=== PATIENT | male | born 1935 | race Caucasian/White ===

== ENCOUNTER 2020-01-24 18:30 | Inpatient (IN) | payer MEDICARE, OTHER ==
[2020-01-25] MEDS ORDERED: FUROSEMIDE 40MG/4ML VIAL (J1940) ONE (01:01)
[2020-01-25] MEDS ORDERED: LEVOTHYROXINE 100MCG TABLET (0.1MG) As Ordered ONE (06:53)
[2020-01-25] MEDS ORDERED: LEVOTHYROXINE 100MCG TABLET (0.1MG) ONE (06:53)
[2020-01-25] MEDS ORDERED: LOSARTAN 50MG TABLET As Ordered ONE (10:04)
[2020-01-25] MEDS ORDERED: ASPIRIN 81 MG ENTERIC TAB ONE (10:04)
[2020-01-25] MEDS ORDERED: TAMSULOSIN 0.4 MG CAP As Ordered ONE (10:04)
[2020-01-25] MEDS ORDERED: CLOPIDOGREL 75 MG TAB ONE (10:04)
[2020-01-25] MEDS ORDERED: CLOPIDOGREL 75 MG TAB As Ordered ONE (10:04)
[2020-01-25] MEDS ORDERED: amLODIPine 10 MG TAB ONE (10:04)
[2020-01-25] MEDS ORDERED: TAMSULOSIN 0.4 MG CAP ONE (10:04)
[2020-01-25] MEDS ORDERED: LOSARTAN 50MG TABLET ONE (10:04)
[2020-01-25] MEDS ORDERED: amLODIPine 10 MG TAB As Ordered ONE (10:05)
[2020-01-25] MEDS ORDERED: ASPIRIN 81 MG ENTERIC TAB As Ordered ONE (10:05)
[2020-01-26] MEDS ORDERED: LEVOTHYROXINE 100MCG TABLET (0.1MG) As Ordered ONE (07:41)
[2020-01-26] MEDS ORDERED: LEVOTHYROXINE 100MCG TABLET (0.1MG) ONE (07:41)
[2020-01-26] MEDS ORDERED: TAMSULOSIN 0.4 MG CAP ONE (08:34)
[2020-01-26] MEDS ORDERED: LOSARTAN 50MG TABLET As Ordered ONE (08:34)
[2020-01-26] MEDS ORDERED: LOSARTAN 50MG TABLET ONE (08:34)
[2020-01-26] MEDS ORDERED: CLOPIDOGREL 75 MG TAB As Ordered ONE (08:34)
[2020-01-26] MEDS ORDERED: ASPIRIN 81 MG ENTERIC TAB ONE (08:34)
[2020-01-26] MEDS ORDERED: amLODIPine 10 MG TAB ONE (08:34)
[2020-01-26] MEDS ORDERED: CLOPIDOGREL 75 MG TAB ONE (08:34)
[2020-01-26] MEDS ORDERED: TAMSULOSIN 0.4 MG CAP As Ordered ONE (08:35)
[2020-01-26] MEDS ORDERED: amLODIPine 10 MG TAB As Ordered ONE (08:35)
[2020-01-26] MEDS ORDERED: ASPIRIN 81 MG ENTERIC TAB As Ordered ONE (08:35)
[2020-01-26] MEDS ORDERED: POTASSIUM CHLORIDE 10 MEQ SR TABLET As Ordered ONE (13:29)
[2020-01-26] MEDS ORDERED: POTASSIUM CHLORIDE 10 MEQ SR TABLET ONE (13:29)
[2020-01-26] MEDS ORDERED: ONDANSETRON 4MG/2ML VIAL ONE (14:21)
[2020-01-26] MEDS ORDERED: ONDANSETRON 4MG/2ML VIAL As Ordered ONE (14:21)
[2020-01-26] MEDS ORDERED: SIMVASTATIN 20 MG TAB ONE (20:27)
[2020-01-26] MEDS ORDERED: SIMVASTATIN 20 MG TAB As Ordered ONE (20:27)
[2020-01-27] MEDS ORDERED: LEVOTHYROXINE 50MCG TABLET (0.05MG) ONE (06:18)
[2020-01-27] MEDS ORDERED: LEVOTHYROXINE 50MCG TABLET (0.05MG) As Ordered ONE (06:18)
[2020-01-27] MEDS ORDERED: CLOPIDOGREL 75 MG TAB As Ordered ONE (09:47)
[2020-01-27] MEDS ORDERED: ASPIRIN 81 MG ENTERIC TAB As Ordered ONE (09:47)
[2020-01-27] MEDS ORDERED: ASPIRIN 81 MG ENTERIC TAB ONE (09:47)
[2020-01-27] MEDS ORDERED: CLOPIDOGREL 75 MG TAB ONE (09:47)
[2020-01-27] MEDS ORDERED: AMIODARONE 200 MG TAB (PACERONE) As Ordered ONE (09:47)
[2020-01-27] MEDS ORDERED: AMIODARONE 200 MG TAB (PACERONE) ONE (09:47)
[2020-01-27] MEDS ORDERED: TAMSULOSIN 0.4 MG CAP As Ordered ONE (09:47)
[2020-01-27] MEDS ORDERED: TAMSULOSIN 0.4 MG CAP ONE (09:47)
--- NOTE | 2020-03-04 16:55 | ECGEPIP ---
SINUS BRADYCARDIA WITH FIRST DEGREE AV BLOCK WITH OCCASIONAL VENTRICULAR PREMATURE COMPLEXES MODERATE INTRAVENTRICULAR CONDUCTION DELAY NONSPECIFIC T-WAVE ABNORMALITY ABNORMAL ECG SEE SCANNED DOWNTIME REPORT [id number]
[2020-03-08 15:48] LABS: HEMATOCRIT 37.6 % (42.0-52.0); HEMOGLOBIN 12.8 g/dl (13.5-17.5); MEAN CORPUSCULAR HEMOGLOBIN 33.2 pg (27.0-33.0); MEAN CORPUSCULAR VOLUME 97.4 fl (80.0-96.0); PLATELET COUNT, AUTOMATED 115 10^3/uL (150-450); RED BLOOD COUNT 3.86 10^6/uL (4.30-6.10); WHITE BLOOD COUNT 4.8 10^3/uL (4.0-10.0)
[2020-03-13 14:46] LABS: BASO % 0.2 % (0.0-1.0); EOS # 0.2 10^3/uL (0.0-0.5); HEMATOCRIT 39.2 % (42.0-52.0); HEMOGLOBIN 13.4 g/dl (13.5-17.5); LYMPH # 0.8 10^3/uL (1.5-5.0); LYMPH % 14.5 % (24.0-44.0); MEAN CORPUSCULAR HEMOGLOBIN 33.3 pg (27.0-33.0); MEAN CORPUSCULAR HGB CONC 34.2 g/dl (32.0-36.5); MEAN CORPUSCULAR VOLUME 97.5 fl (80.0-96.0); MONO # 0.5 10^3/uL (0.0-0.8); MONO % 10.1 % (0.0-5.0); NEUTROPHILS # 3.9 10^3/uL (1.5-8.5); PLATELET COUNT, AUTOMATED 118 10^3/uL (150-450); RED BLOOD COUNT 4.02 10^6/uL (4.30-6.10); WHITE BLOOD COUNT 5.4 10^3/uL (4.0-10.0)
[2020-03-13 18:21] LABS: EOS # 0.2 10^3/uL (0.0-0.5); EOS % 3.8 % (0.0-3.0); HEMATOCRIT 35.2 % (42.0-52.0); HEMOGLOBIN 12.1 g/dl (13.5-17.5); LYMPH # 0.8 10^3/uL (1.5-5.0); LYMPH % 18.7 % (24.0-44.0); MEAN CORPUSCULAR HEMOGLOBIN 33.2 pg (27.0-33.0); MEAN CORPUSCULAR HGB CONC 34.4 g/dl (32.0-36.5); MEAN CORPUSCULAR VOLUME 96.4 fl (80.0-96.0); MONO # 0.5 10^3/uL (0.0-0.8); NEUTROPHILS # 2.9 10^3/uL (1.5-8.5); NEUTROPHILS % 65.1 % (36.0-66.0); PLATELET COUNT, AUTOMATED 107 10^3/uL (150-450); RED BLOOD COUNT 3.65 10^6/uL (4.30-6.10); WHITE BLOOD COUNT 4.5 10^3/uL (4.0-10.0)
[2020-03-18 09:04] LABS: HEMATOCRIT 37.2 % (42.0-52.0); HEMOGLOBIN 12.5 g/dl (13.5-17.5); MEAN CORPUSCULAR HGB CONC 33.6 g/dl (32.0-36.5); MEAN CORPUSCULAR VOLUME 98.2 fl (80.0-96.0); PLATELET COUNT, AUTOMATED 116 10^3/uL (150-450); RED BLOOD COUNT 3.79 10^6/uL (4.30-6.10); WHITE BLOOD COUNT 4.9 10^3/uL (4.0-10.0)
[2020-04-12 03:04] LABS: CALCIUM LEVEL 8.1 MG/DL (8.8-10.2); CREATININE FOR GFR 1.88 MG/DL (0.70-1.30); GLOMERULAR FILTRATION RATE 36.5 (>35); MAGNESIUM LEVEL 2.1 MG/DL (1.8-2.4); POTASSIUM SERUM 3.4 MEQ/L (3.5-5.1)
[2020-04-13 11:02] LABS: ABG PARTIAL PRESSURE O2 180.9 mmHg (75.0-100.0); ABG SITE ART LINE; ABG TOTAL CO2 23.6 MEQ/L (23.0-31.0); ABG pH (ARTERIAL) 7.454 UNITS (7.350-7.450)
[2020-04-13 11:03] LABS: ABG BASE EXCESS -0.6 (-2.0-2.0); ABG HCO3 22.6 MEQ/L (22.0-26.0); ABG O2 SATURATION 99.3 % (95.0-99.0)
[2020-04-13 12:14] LABS: BLOOD UREA NITROGEN 46 MG/DL (7-18); CALCIUM LEVEL 8.8 MG/DL (8.8-10.2); CARBON DIOXIDE LEVEL 31 MEQ/L (21-32); CHLORIDE LEVEL 106 MEQ/L (98-107); CREATININE FOR GFR 2.04 MG/DL (0.70-1.30); GLOMERULAR FILTRATION RATE 33.2 (>35); GLUCOSE, FASTING 112 MG/DL (70-100); NT-PRO BNP 713 PG/ML (<450); POTASSIUM SERUM 4.1 MEQ/L (3.5-5.1); SODIUM LEVEL 140 MEQ/L (136-145); TROPONIN I < 0.02 NG/ML (< 0.10)
[2020-04-14 18:48] LABS: CREATININE,RANDOM URINE 41.7 MG/DL
[2020-04-20 19:59] LABS: BLOOD UREA NITROGEN 38 MG/DL (7-18); CALCIUM LEVEL 8.8 MG/DL (8.8-10.2); CARBON DIOXIDE LEVEL 33 MEQ/L (21-32); CHLORIDE LEVEL 106 MEQ/L (98-107); FERRITIN 132 NG/ML (26-388); GLOMERULAR FILTRATION RATE 38.4 (>35); GLUCOSE, FASTING 100 MG/DL (70-100); IRON (FE) 74 UG/DL (65-175); PERCENT SATURATION 26.2 % (19.7-50.0); POTASSIUM SERUM 3.6 MEQ/L (3.5-5.1); SODIUM LEVEL 142 MEQ/L (136-145); TOTAL IRON BINDING CAPACITY 282 UG/DL (250-450); TROPONIN I < 0.02 NG/ML (< 0.10)
[2020-04-21 04:12] LABS: CALCIUM LEVEL 8.4 MG/DL (8.8-10.2); CREATININE FOR GFR 1.9 MG/DL (0.70-1.30); FREE T4 0.99 NG/DL (0.76-1.46); MAGNESIUM LEVEL 1.8 MG/DL (1.8-2.4); POTASSIUM SERUM 4.1 MEQ/L (3.5-5.1)
== END 2020-01-27 09:15 | disposition home or self-care (01) | DRG 309 ==
LOC: M ED 18:30 → M PCU 23:59 → UNDOADMIN 01-25 03:52 → UNDODISIN 01-27 09:15
PROVIDERS: ADMIT Internal Medicine; ATTEND Internal Medicine
DX: R00.1 Bradycardia, unspecified (principal); N17.9 Acute kidney failure, unspecified; I13.0 Hypertensive heart and chronic kidney disease with heart failure and stage 1 through stage 4 chronic kidney disease, or unspecified chronic kidney disease; I47.1 Supraventricular tachycardia; N18.9 Chronic kidney disease, unspecified; E03.9 Hypothyroidism, unspecified; I25.10 Atherosclerotic heart disease of native coronary artery without angina pectoris; E78.5 Hyperlipidemia, unspecified; N40.0 Benign prostatic hyperplasia without lower urinary tract symptoms; I50.9 Heart failure, unspecified; I27.20 Pulmonary hypertension, unspecified; I49.5 Sick sinus syndrome; Z79.899 Other long term (current) drug therapy; Z79.82 Long term (current) use of aspirin; Z86.73 Personal history of transient ischemic attack (TIA), and cerebral infarction without residual deficits; Z95.2 Presence of prosthetic heart valve; G62.9 Polyneuropathy, unspecified; Z85.828 Personal history of other malignant neoplasm of skin

== ENCOUNTER 2022-01-02 16:29 | Observation (INO) | payer MEDICARE, BC, OTHER ==
[~2022-01-02] VITALS: Ht 175.3 cm; Wt 94.5 kg
[2022-01-02 16:59] LABS: BASO % 0.2 % (0.0-1.0); EOS # 0.3 10^3/uL (0.0-0.5); EOS % 4.9 % (0.0-3.0); HEMATOCRIT 31.3 % (42.0-52.0); HEMOGLOBIN 10.3 g/dl (13.5-17.5); LYMPH # 0.7 10^3/uL (1.5-5.0); LYMPH % 13.4 % (24.0-44.0); MEAN CORPUSCULAR HEMOGLOBIN 33.2 pg (27.0-33.0); MEAN CORPUSCULAR HGB CONC 32.9 g/dl (32.0-36.5); MONO # 0.5 10^3/uL (0.0-0.8); MONO % 9.2 % (2.0-8.0); NEUTROPHILS % 72.1 % (36.0-66.0); PLATELET COUNT, AUTOMATED 137 10^3/uL (150-450); WHITE BLOOD COUNT 5.5 10^3/uL (4.0-10.0)
[2022-01-02 17:20] LABS: INR 1.14; PARTIAL THROMBOPLASTIN TIME 26.8 SECONDS (25.9-37.0)
[2022-01-02 17:23] LABS: CALCIUM LEVEL 8.6 MG/DL (8.8-10.2); CREATININE FOR GFR 1.97 MG/DL (0.70-1.30); GLOMERULAR FILTRATION RATE 34.4 (>35); MAGNESIUM LEVEL 1.7 MG/DL (1.8-2.4); POTASSIUM SERUM 4.3 MEQ/L (3.5-5.1)
[2022-01-02 17:28] LABS: CK-MB VALUE MASS 2.2 NG/ML (<3.6); MB/CK RELATIVE INDEX 0.32 (< OR =4)
[2022-01-02] MEDS ORDERED: LR 500 ML IV ONE (17:55)
[2022-01-02 19:36] LABS: RSV AMPLIFICATION NEGATIVE (NEGATIVE)
[2022-01-02 20:13] LABS: CK-MB VALUE MASS 2.2 NG/ML (<3.6); MB/CK RELATIVE INDEX 0.31 (< OR =4)
[2022-01-02] MEDS ORDERED: LOSARTAN (20:21)
[2022-01-02] MEDS ORDERED: FLOM0.4C39 PO (20:21)
[2022-01-02] MEDS ORDERED: ATORVASTATIN (20:21)
[2022-01-02] MEDS ORDERED: MED REC COMMENT (20:21)
[2022-01-02] MEDS ORDERED: CLOP75TA2 PO (20:21)
[2022-01-02] MEDS ORDERED: ASPI81TA26 PO (20:21)
[2022-01-02] MEDS ORDERED: FURO20TA2 PO (20:21)
[2022-01-02] MEDS ORDERED: COQ150CH PO (20:21)
[2022-01-02] MEDS ORDERED: LEVO112T2 PO (20:21)
[2022-01-02] MEDS ORDERED: HOME MED LIST COMPLETE! XX SCH (20:25)
[2022-01-02 22:29] VITALS: BP 204/80
[2022-01-02] MEDS: MAGNESIUM OXIDE 400MG TAB (MAG-OX) PO SCH (23:29)
[2022-01-03] VITALS (9 sets, daily range): BP systolic 130–210; BP diastolic 42–96
[2022-01-03] MEDS ORDERED: LOSARTAN 25 MG TAB PO ONE
[2022-01-03] MEDS: LEVOTHYROXINE 112MCG TABLET (0.112MG) PO SCH (05:21)
[2022-01-03 06:08] LABS: CALCIUM LEVEL 8.3 MG/DL (8.8-10.2); CREATININE FOR GFR 1.58 MG/DL (0.70-1.30); GLOMERULAR FILTRATION RATE 44.4 (>35); MAGNESIUM LEVEL 1.8 MG/DL (1.8-2.4); PERCENT SATURATION 24.9 % (19.7-50.0); THYROID STIMULATING HORMONE 3.87 uIU/ML (0.358-3.740)
[2022-01-03 07:16] LABS: BASO % 0.2 % (0.0-1.0); EOS # 0.3 10^3/uL (0.0-0.5); HEMATOCRIT 30.6 % (42.0-52.0); LYMPH # 0.9 10^3/uL (1.5-5.0); LYMPH % 20.3 % (24.0-44.0); MEAN CORPUSCULAR HEMOGLOBIN 33.1 pg (27.0-33.0); MEAN CORPUSCULAR HGB CONC 32.7 g/dl (32.0-36.5); MEAN CORPUSCULAR VOLUME 101.3 fl (80.0-96.0); MONO # 0.5 10^3/uL (0.0-0.8); MONO % 12.2 % (2.0-8.0); NEUTROPHILS # 2.7 10^3/uL (1.5-8.5); NEUTROPHILS % 60.1 % (36.0-66.0); PLATELET COUNT, AUTOMATED 133 10^3/uL (150-450); RED BLOOD COUNT 3.02 10^6/uL (4.30-6.10); WHITE BLOOD COUNT 4.4 10^3/uL (4.0-10.0)
[2022-01-03 07:25] LABS: FREE T4 1.12 NG/DL (0.76-1.46)
[2022-01-03] MEDS: ASPIRIN 81MG ENTERIC TABLET PO SCH (08:48)
[2022-01-03] MEDS: MAGNESIUM OXIDE 400MG TAB (MAG-OX) PO SCH (08:49)
[2022-01-03] MEDS: CLOPIDOGREL 75 MG TAB PO SCH (08:49)
[2022-01-03] MEDS ORDERED: FUROSEMIDE 20 MG TAB PO SCH (09:00)
[2022-01-03] MEDS: HEPARIN SOD (PORCINE) 5000UNITS/ML 1ML VIAL/SYRINGE SQ SCH ×2 (14:10→22:30)
[2022-01-03] MEDS ORDERED: hydrALAZINE 20MG/ML 1ML VIAL (J0360 PER 20MG) IV ONE ×2 (22:40)
[2022-01-04] VITALS: BP_SYST 163; BP_SYST 174; BP_DIAS 73; BP_DIAS 74; BP_DIAS 86
[2022-01-04 04:00] VITALS: BP_SYST 169; BP_SYST 175; BP_SYST 195; BP_DIAS 77; BP_DIAS 82; BP_DIAS 85
[2022-01-04 05:35] LABS: BASO % 0.3 % (0.0-1.0); EOS # 0.3 10^3/uL (0.0-0.5); EOS % 8.3 % (0.0-3.0); HEMATOCRIT 32.5 % (42.0-52.0); HEMOGLOBIN 10.6 g/dl (13.5-17.5); LYMPH # 0.9 10^3/uL (1.5-5.0); LYMPH % 22.9 % (24.0-44.0); MEAN CORPUSCULAR HEMOGLOBIN 32.6 pg (27.0-33.0); MEAN CORPUSCULAR HGB CONC 32.6 g/dl (32.0-36.5); MONO # 0.4 10^3/uL (0.0-0.8); MONO % 10.3 % (2.0-8.0); NEUTROPHILS # 2.3 10^3/uL (1.5-8.5); NEUTROPHILS % 58.2 % (36.0-66.0); PLATELET COUNT, AUTOMATED 135 10^3/uL (150-450); RED BLOOD COUNT 3.25 10^6/uL (4.30-6.10)
[2022-01-04 05:55] LABS: CALCIUM LEVEL 8.4 MG/DL (8.8-10.2); CREATININE FOR GFR 1.33 MG/DL (0.70-1.30); GLOMERULAR FILTRATION RATE 54.1 (>35); MAGNESIUM LEVEL 2.1 MG/DL (1.8-2.4); POTASSIUM SERUM 4.4 MEQ/L (3.5-5.1)
[2022-01-04] MEDS: HEPARIN SOD (PORCINE) 5000UNITS/ML 1ML VIAL/SYRINGE SQ SCH (06:12)
[2022-01-04] MEDS: LEVOTHYROXINE 112MCG TABLET (0.112MG) PO SCH (06:44)
[2022-01-04 07:29] VITALS: BP_SYST 140; BP_SYST 180; BP_DIAS 60; BP_DIAS 62; BP_DIAS 64
[2022-01-04] MEDS ORDERED: HYDR10TAB PO (07:40)
[2022-01-04] MEDS ORDERED: ISOS10TA3 PO (07:40)
[2022-01-04] MEDS ORDERED: SELF1KIT MC (07:41)
[2022-01-04] MEDS: ASPIRIN 81MG ENTERIC TABLET PO SCH (08:28)
[2022-01-04 08:29] VITALS: BP 140/60
[2022-01-04] MEDS: CLOPIDOGREL 75 MG TAB PO SCH (08:29)
[2022-01-04] MEDS ORDERED: **hydrALAZINE** 10 MG TAB PO SCH (09:00)
[2022-01-04] MEDS ORDERED: ISOSORBIDE DIN (ISORDIL) 10MG TAB PO SCH (09:00)
== END 2022-01-04 10:21 | disposition home or self-care (01) ==
LOC: M ED 16:29 → EDBD 16:29 → M ED INP 21:01 → ENRESERV 21:45 → M PCU 22:27
PROVIDERS: ADMIT Internal Medicine; ATTEND Internal Medicine
DX: R55 Syncope and collapse (principal); I49.9 Cardiac arrhythmia, unspecified; I25.10 Atherosclerotic heart disease of native coronary artery without angina pectoris; Z98.61 Coronary angioplasty status; R60.9 Edema, unspecified; Z86.79 Personal history of other diseases of the circulatory system; I16.0 Hypertensive urgency; R79.89 Other specified abnormal findings of blood chemistry; I50.20 Unspecified systolic (congestive) heart failure; I25.5 Ischemic cardiomyopathy; E78.5 Hyperlipidemia, unspecified; N40.0 Benign prostatic hyperplasia without lower urinary tract symptoms; N18.32 Chronic kidney disease, stage 3b; J44.9 Chronic obstructive pulmonary disease, unspecified; I44.4 Left anterior fascicular block; Z86.73 Personal history of transient ischemic attack (TIA), and cerebral infarction without residual deficits; T50.1X5A Adverse effect of loop [high-ceiling] diuretics, initial encounter; Z79.899 Other long term (current) drug therapy; Z79.82 Long term (current) use of aspirin; Z79.02 Long term (current) use of antithrombotics/antiplatelets; Z79.890 Hormone replacement therapy; Z87.891 Personal history of nicotine dependence
CPT/HCPCS: 36415; 70450; 71045; 80048; 82550; 82553; 82728; 83550; 83735; 83880; 84439; 84443; 84484; 85025; 85610; 85730; 87631; 93005; 93041; 93306; 94760; 96361; 96372; 96374; 97161; 97165; 97530; 99285; G0378; J0360; J1644

== ENCOUNTER → 2023-03-03 | Outpatient (CLI) | payer MEDICARE, BC, OTHER ==
[~2023-03-03] MED LIST: ASPI81TA26 PO; ATORVASTATIN; CLOP75TA2 PO; COQ150CH PO; FLOM0.4C39 PO; FURO20TA2 PO; HYDR10TAB PO; ISOS10TA3 PO; LEVO112T2 PO; LOSARTAN; MED REC COMMENT; SELF1KIT MC
[2023-03-03 18:36] LABS: BASO % 0.4 % (0.0-1.0); EOS # 0.4 10^3/uL (0.0-0.5); EOS % 7.7 % (0.0-3.0); HEMATOCRIT 33.7 % (42.0-52.0); LYMPH # 0.9 10^3/uL (1.5-5.0); LYMPH % 15.9 % (24.0-44.0); MEAN CORPUSCULAR HEMOGLOBIN 32.9 pg (27.0-33.0); MEAN CORPUSCULAR HGB CONC 32.6 g/dl (32.0-36.5); MEAN CORPUSCULAR VOLUME 100.9 fl (80.0-96.0); MONO # 0.6 10^3/uL (0.0-0.8); MONO % 11.7 % (2.0-8.0); NEUTROPHILS # 3.5 10^3/uL (1.5-8.5); NEUTROPHILS % 63.9 % (36.0-66.0); PLATELET COUNT, AUTOMATED 127 10^3/uL (150-450); RED BLOOD COUNT 3.34 10^6/uL (4.30-6.10); WHITE BLOOD COUNT 5.5 10^3/uL (4.0-10.0)
[2023-03-03 18:48] LABS: CALCIUM LEVEL 8.5 MG/DL (8.3-10.6); CREATININE FOR GFR 1.61 MG/DL (0.70-1.30); GLOMERULAR FILTRATION RATE 43.3 (>35); POTASSIUM SERUM 4.5 MMOL/L (3.5-5.1)
== END ==
LOC: M PLALAB 15:05
PROVIDERS: ATTEND Nurse Practitioner Family
DX: I42.9 Cardiomyopathy, unspecified (principal)

== ENCOUNTER → 2023-10-12 | Outpatient (CLI) | payer MEDICARE, BC ==
[~2023-10-12] MED LIST changes: +HYDR-161 PO; -HYDR10TAB PO
[2023-10-12 13:38] LABS: HEMATOCRIT 30.9 % (42.0-52.0); HEMOGLOBIN 10.2 g/dl (13.5-17.5); MEAN CORPUSCULAR HEMOGLOBIN 33.8 pg (27.0-33.0); MEAN CORPUSCULAR VOLUME 102.3 fl (80.0-96.0); PLATELET COUNT, AUTOMATED 140 10^3/uL (150-450); RED BLOOD COUNT 3.02 10^6/uL (4.30-6.10); WHITE BLOOD COUNT 4.7 10^3/uL (4.0-10.0)
[2023-10-12 13:40] LABS: FERRITIN 36.8 NG/ML (10.5-307.3)
[2023-10-12 13:42] LABS: PERCENT SATURATION 33.6 % (19.7-50.0)
== END ==
LOC: M PLALAB 10:32
PROVIDERS: ATTEND Family Medicine
DX: D53.9 Nutritional anemia, unspecified (principal)

== ENCOUNTER → 2024-01-29 | Outpatient (CLI) | payer MEDICARE, BC ==
[2024-01-29 13:21] LABS: HEMATOCRIT 33.6 % (42.0-52.0); MEAN CORPUSCULAR HEMOGLOBIN 32.4 pg (27.0-33.0); MEAN CORPUSCULAR HGB CONC 32.7 g/dl (32.0-36.5); MEAN CORPUSCULAR VOLUME 99.1 fl (80.0-96.0); PLATELET COUNT, AUTOMATED 139 10^3/uL (150-450); RED BLOOD COUNT 3.39 10^6/uL (4.30-6.10); WHITE BLOOD COUNT 5.1 10^3/uL (4.0-10.0)
[2024-01-29 13:24] LABS: CHOLESTEROL RISK RATIO 3.51 (<5); CREATININE FOR GFR 1.77 MG/DL (0.70-1.30); GLOMERULAR FILTRATION RATE 38.8 (>35); LDL CHOLESTEROL 43.4 MG/DL (<100); POTASSIUM SERUM 4.5 MMOL/L (3.5-5.1)
== END ==
LOC: M PLALAB 09:28
PROVIDERS: ATTEND Family Medicine
DX: I50.22 Chronic systolic (congestive) heart failure (principal); D53.9 Nutritional anemia, unspecified; E78.5 Hyperlipidemia, unspecified